=== PATIENT | female | born 1990 | race Caucasian/White ===

== ENCOUNTER 2017-02-09 01:01 | Emergency (ER) | payer OTHER, BC ==
[2017-02-09] MEDS ORDERED: NAPROXEN 250 MG TAB PO ONE (06:00)
[2017-02-09 06:06] VITALS: BP 124/76
== END 2017-02-09 06:23 | disposition home or self-care (01) ==
LOC: M ED 01:01
DX: M25.561 Pain in right knee (principal); X50.9XXA Other and unspecified overexertion or strenuous movements or postures, initial encounter; Y92.59 Other trade areas as the place of occurrence of the external cause; Y93.89 Activity, other specified; Y99.8 Other external cause status; Z88.5 Allergy status to narcotic agent

== ENCOUNTER 2019-08-27 15:18 | Emergency (ER) | payer BC, OTHER ==
[~2019-08-27] VITALS: Ht 167.6 cm; Wt 87.2 kg
[2019-08-27] MEDS ORDERED: KETOROLAC TROMETHAMINE 10 MG TAB PO ONE (15:45)
[2019-08-27] MEDS ORDERED: CYCLOBENZAPRINE 10MG TABLET PO ONE (15:45)
[2019-08-27] MEDS ORDERED: KETO10TAB PO (17:15)
[2019-08-27] MEDS ORDERED: CYCL-707 PO (17:15)
[2019-08-27 17:20] VITALS: BP 121/71
== END 2019-08-27 17:23 | disposition home or self-care (01) ==
LOC: M ED 15:18
DX: S39.012A Strain of muscle, fascia and tendon of lower back, initial encounter (principal); X58.XXXA Exposure to other specified factors, initial encounter; Y92.89 Other specified places as the place of occurrence of the external cause; J45.909 Unspecified asthma, uncomplicated; E28.2 Polycystic ovarian syndrome; Z79.899 Other long term (current) drug therapy; Z88.5 Allergy status to narcotic agent

== ENCOUNTER 2019-08-30 13:03 | Emergency (ER) | payer OTHER ==
[~2019-08-30] VITALS: Ht 167.6 cm; Wt 88.7 kg
[2019-08-30 13:03] VITALS: BP 132/76
[~2019-08-30 13:03] MED LIST: CYCL-707 PO; KETO10TAB PO
== END 2019-08-30 13:46 | disposition home or self-care (01) ==
LOC: M ED 13:03

== ENCOUNTER → 2020-10-01 | Outpatient (CLI) | payer BC ==
[2020-10-01 14:29] LABS: HEMATOCRIT 37.4 % (36.0-47.0); HEMOGLOBIN 12.8 g/dl (12.0-15.5); MEAN CORPUSCULAR HEMOGLOBIN 31.2 pg (27.0-33.0); MEAN CORPUSCULAR HGB CONC 34.2 g/dl (32.0-36.5); MEAN CORPUSCULAR VOLUME 91.2 fl (80.0-96.0); PLATELET COUNT, AUTOMATED 241 10^3/uL (150-450); WHITE BLOOD COUNT 8.9 10^3/uL (4.0-10.0)
[2020-10-01 14:50] LABS: GLUCOSE CHALLENGE TEST 1 HOUR 88 MG/DL (LESS THAN 140)
[2020-10-01 15:45] LABS: HEPATITIS C VIRUS ABY INDEX < 0.0 INDEX (<0.8)
[2020-10-01 15:46] LABS: HIV 1&2 SCREEN CENTAUR NEGATIVE (NEGATIVE)
[2020-10-01 16:16] LABS: HEMOGLOBIN A1c 4.9 %
[2020-10-01 16:49] LABS: CHLAMYDIA DNA AMPLIFICATION NEGATIVE (NEGATIVE); GC DNA AMPLIFICATION NEGATIVE (NEGATIVE)
== END ==
LOC: M LAB 12:15
PROVIDERS: ATTEND Advanced Practice Midwife
DX: Z34.01 Encounter for supervision of normal first pregnancy, first trimester (principal)

== ENCOUNTER → 2020-10-13 | Outpatient (CLI) | payer BC ==
--- NOTE | 2020-10-13 08:18 | REP ---
INDICATION: CONFIRM DATING,UNCERTAIN LMP COMPARISON: None. TECHNIQUE: Transabdominal 1st trimester obstetrical ultrasound with color Doppler evaluation. FINDINGS: Single live early intrauterine is appreciated. [place]-rump length of 7.8 cm corresponds to 13 weeks 6 days gestational age with estimated date of delivery 04/14/2021. heart rate equals 139 beats per minute. No gross abnormalities are identified. Placenta identified at the fundus, grade 0 and without evidence for previa. Cervix measures 3.3 cm in length and appears closed. Maternal ovaries are normal in appearance. IMPRESSION: Single live early intrauterine at 13 weeks 6 days gestational age. Complete anatomical assessment should be performed and 19-20 weeks. <Electronically signed by Jose Antonio Perera > 10/13/20 [id number]
== END ==
LOC: M WHC 06:51
PROVIDERS: ATTEND Advanced Practice Midwife
DX: Z3A.00 Weeks of gestation of pregnancy not specified (principal)

== ENCOUNTER → 2020-10-22 | Outpatient (REF) | payer BC | LOC: M SFHCWAGY 17:25 | PROVIDERS: ATTEND Specialist | DX: Z01.419 Encounter for gynecological examination (general) (routine) without abnormal findings (principal); Z12.4 Encounter for screening for malignant neoplasm of cervix ==

== ENCOUNTER 2020-12-09 12:28 | Inpatient (IN) | payer BC ==
[~2020-12-09] VITALS: Ht 167.6 cm; Wt 98.4 kg
[~2020-12-09 12:28] MED LIST changes: +LIDOCAINE 1% MDV 20ML VIAL SQ PRN; -PRENTAB9 PO
[2020-12-09] MEDS ORDERED: PRENTAB9 PO (12:48)
[2020-12-09] MEDS ORDERED: propofoL 200 MG/20 ML VIAL As Ordered ONE ×4 (13:01→15:00)
[2020-12-09] MEDS ORDERED: LIDOCAINE 2% 100MG/5ML SDV (FOR ANES.) As Ordered ONE (13:01)
[2020-12-09] MEDS ORDERED: ROCURONIUM BROMIDE 50 MG/5 ML VIAL As Ordered ONE (13:01)
[2020-12-09] MEDS ORDERED: fentaNYL 100 MCG/2 ML INJECTION (J3010) As Ordered ONE (13:01)
[2020-12-09] MEDS ORDERED: CHLOROPROCAINE PRES. FREE 2% 20ML VIAL As Ordered ONE (13:14)
[2020-12-09] MEDS ORDERED: LR 1,000 ML IV ONE (13:15)
[2020-12-09 13:31] LABS: HEMATOCRIT 33.6 % (36.0-47.0); HEMOGLOBIN 11.6 g/dl (12.0-15.5); MEAN CORPUSCULAR HEMOGLOBIN 32.1 pg (27.0-33.0); MEAN CORPUSCULAR HGB CONC 34.5 g/dl (32.0-36.5); MEAN CORPUSCULAR VOLUME 93.1 fl (80.0-96.0); PLATELET COUNT, AUTOMATED 231 10^3/uL (150-450); RED BLOOD COUNT 3.61 10^6/uL (4.00-5.40)
[2020-12-09] MEDS ORDERED: LR 1,000 ML IV SCH (15:35)
[2020-12-09 15:50] VITALS: BP 130/68
[2020-12-09] MEDS ORDERED: INDOMETHACIN 25 MG CAP PO SCH (15:50)
[2020-12-09] MEDS ORDERED: ACETAMINOPHEN TAB 650MG DOSE (2X325MG) PO PRN (16:30)
[2020-12-09 17:20] VITALS: BP 153/72
[2020-12-09 18:20] VITALS: BP 130/58
[2020-12-09 20:12] VITALS: BP 125/64
[2020-12-09] MEDS: INDOMETHACIN 25 MG CAP PO SCH (22:02)
[2020-12-09] MEDS: DOCUSATE SODIUM 100MG CAPSULE PO SCH (22:02)
[2020-12-09 22:15] VITALS: BP 119/62
[2020-12-10] VITALS: BP 108/57
--- NOTE | 2020-12-10 02:23 | ROOPDOC ---
[facility] Report Of Operation Report of Operation DATE OF PROCEDURE: 12/09/20 PREPROCEDURE DIAGNOSES: 1. Cervical insufficiency 2. Advanced cervical dilation 3. Intrauterine at 22 weeks and 4 days. POSTPROCEDURE DIAGNOSES: 1. Cervical insufficiency 2. Advanced cervical dilation 3. Intrauterine at 22 weeks and 4 days. PROCEDURE PERFORMED: Rescue Sanders cerclage. SURGEON: Hermila Zee MD CV/CVN CV TSC SYSTEM OPERATOR: None ANESTHESIA: Spinal. ESTIMATED BLOOD LOSS: Approximately 100 mL. SPECIMENS REMOVED: None INDICATION FOR OPERATION: This patient is a 29-year-old 1 at 22 weeks 4 days who presented to the office for cervical assessment due to detection of a shortened cervix on anatomy ultrasound. Per client project coordinator there is no measurable cervix on transvaginal ultrasound. Patient was sent to the office where she was examined and found to be dilated approximately 2 to 3 cm with a bulging membranes. I discussed the diagnosis of cervical insufficiency with the patient. We discussed expectant management with bedrest versus proceeding with rescue cerclage. I reviewed risks of both and after consultation patient decided to proceed with a rescue cerclage DESCRIPTION OF PROCEDURE: After informed consent was obtained and written consent was reviewed the patient was brought to the operating room spinal anesthesia was placed she was then placed in lithotomy position. The patient was then prepped and draped exclude internal preparation. A weighted speculum was then placed in the vagina along with a Penny retractor revealing bulging membranes to the cervix approximately 4 to 5 cm. Montes catheter was then infused with approximately 500 mL of saline with anterior posterior aspect the cervix was visualized and using ring forceps were grasped and placed on traction the membranes are further gently tented to the cervix reducing it further. Using a #0-Prolene, a Sanders cerclage was performed starting at 12 o'clock and extending around to 9 o'clock. This was continued in a pursestring fashion down to 6 o'clock all the way back to 12 o'clock and this was tied at 12 o'clock position. A second suture was placed behind this suture,once again starting at 12 o'clock extending around 9 o'clock in a pursestring fashion down to 6 o'clock around to 3 o'clock back to 12 o'clock position and this was tied down. Cervix was then inspected and noted to be hemostatic and grossly intact. On palpation the cervix felt soft with no strangulation due to cerclage placement. HERMILA ZEE MD. Dec 10, 2020 02:23
[2020-12-10 05:00] VITALS: BP 95/50
[2020-12-10] MEDS: INDOMETHACIN 25 MG CAP PO SCH ×3 (05:13→21:33)
[2020-12-10 07:42] VITALS: BP 130/61
--- NOTE | 2020-12-10 08:03 | IPNPDOC ---
Text Note Date of Service The patient was seen on 12/10/20. NOTE S: Doing well w/o issues. Has had some light bleeding. Denies ctx, f/c/n/v. O: vss, AF Gen: well appearing abd: gravid,nttp TAUS: Active fetus with cardiac activity. Adequate fluid, ceph. A/P: 30-year-old 1 at 23 weeks 5 days with cervical insufficiency s/p rescue cerclagecurrently stable We will consider continue modified bedrest -DC Montes catheter Hermila Zee MD VS,Ronald, I+O VSRonald I+O Laboratory Tests 12/09/20 13:16 Vital Signs Date Time Temp Pulse Resp B/P (MAP) Pulse Ox O2 Delivery O2 Flow Rate FiO2 12/10/20 07:42 98.2 88 20 130/61 (84) 98 Room Air I&O- Last 24 Hours up to 6 AM 12/10/20 05:59 Intake Total 2195 ml Output Total 3000 ml Balance -805 ml HERMILA ZEE MD. Dec 10, 2020 08:03
[2020-12-10] MEDS: PRENATAL VITAMINS CHEWABLE TABLET PO SCH (09:34)
[2020-12-10] MEDS: DOCUSATE SODIUM 100MG CAPSULE PO SCH ×2 (09:34→20:16)
[2020-12-10 11:59] VITALS: BP 103/51
[2020-12-10] MEDS: busPIRone 5 MG TAB PO SCH ×2 (14:19→20:16)
[2020-12-10] MEDS: OMEPRAZOLE 20 MG CAP PO SCH (14:19)
[2020-12-10 20:00] VITALS: BP 105/55
[2020-12-11 04:00] VITALS: BP 95/50
[2020-12-11] MEDS: INDOMETHACIN 25 MG CAP PO SCH ×3 (05:30→22:08)
[2020-12-11 07:25] VITALS: BP 101/54
[2020-12-11] MEDS: PRENATAL VITAMINS CHEWABLE TABLET PO SCH (08:00)
[2020-12-11] MEDS: DOCUSATE SODIUM 100MG CAPSULE PO SCH ×2 (08:00→21:27)
[2020-12-11] MEDS: OMEPRAZOLE 20 MG CAP PO SCH (08:08)
--- NOTE | 2020-12-11 16:03 | IPNPDOC ---
Text Note Date of Service The patient was seen on 12/11/20. NOTE S: Doing well w/o issues. Reports movement. No vaginal bleeding, LOF or cramoing O: vss, AF Gen: well appearing abd: gravid, nttp A/P; 30-year-old 1 with incompetent cervix s/p rescue cerclage -Continue modified bedrest We will remove Montes catheter Complete anatomy ultrasound Hermila Zee MD VS,Ronald, I+O VS, Ronald, I+O Vital Signs Date Time Temp Pulse Resp B/P (MAP) Pulse Ox O2 Delivery O2 Flow Rate FiO2 12/11/20 07:25 98.8 81 16 101/54 (70) 96 Room Air I&O- Last 24 Hours up to 6 AM 12/11/20 05:59 Intake Total 360 ml Output Total 3625 ml Balance -3265 ml HERMILA ZEE MD. Dec 11, 2020 16:03
[2020-12-11 17:11] VITALS: BP 95/50
[2020-12-11 18:41] VITALS: BP 110/58
[2020-12-11 22:00] VITALS: BP 97/52
[2020-12-12 06:00] VITALS: BP 104/52
--- NOTE | 2020-12-12 08:16 | REP ---
INDICATION: complete anatomy u/s COMPARISON: None. TECHNIQUE: Transabdominal obstetrical ultrasound with color Doppler evaluation. FINDINGS: Examination demonstrates a single live intrauterine in breech presentation. motion is identified by technologist. Placenta is noted posterior and grade 0 without evidence for placenta previa or abruption. Amniotic fluid volume is normal. Cervix measures 3.7 cm in length and appears closed.. Selected gestational age: 23 weeks 1 day with THAI 04/09/2021. Gestational age by current measurements 23 weeks 1 day with THAI 04/09/2021. FHR equals 135 beats per minute. BPD: 5.6 cm at 23 weeks 1 day HC: 20.8 cm at 22 weeks 6 days AC: 18.9 cm at 23 weeks 5 days FL: 4.1 cm at 23 weeks 1 day HL: 3.7 cm at 23 weeks 0 days HC/AC: 1.10 Estimated weight 587 grams (52ndpercentile). Anatomical assessment demonstrates normal structures including lungs, four-chamber heart/ventricular outflow tracts, diaphragm, stomach, cord insertion/three-vessel cord, kidneys/bladder, spine, and extremities. Limited evaluation of the cranial and facial structures due to positioning. Kidneys demonstrate mild pelviectasis which remains in normal range. IMPRESSION: Single live intrauterine in breech presentation demonstrating appropriate estimated weight. Anatomical limitations as noted above may warrant re-evaluation and follow-up. <Electronically signed by Jose Antonio Perera > 12/12/20 2440
--- NOTE | 2020-12-12 09:28 | IPNPDOC ---
Text Note Date of Service The patient was seen on 12/12/20. NOTE S: Doing well w/o issues. Reports movement. No vaginal bleeding, LOF or cramoing O: vss, AF +Doptones Gen: well appearing abd: gravid, nttp A/P; 30-year-old 1 at 23w1d with incompetent cervix s/p rescue cerclage -Continue modified bedrest We will remove Montes catheter Complete anatomy ultrasound Hermila Zee MD VS,Ronald, I+O VSRonald, I+O Vital Signs Date Time Temp Pulse Resp B/P (MAP) Pulse Ox O2 Delivery O2 Flow Rate FiO2 12/12/20 06:00 98.8 82 16 104/52 (69) 96 Room Air I&O- Last 24 Hours up to 6 AM 12/12/20 06:00 Intake Total 570 ml Output Total 1375 ml Balance -805 ml HERMILA ZEE MD. Dec 12, 2020 09:28
[2020-12-12 09:48] VITALS: BP 110/58
[2020-12-12 18:00] VITALS: BP 107/57
[2020-12-12] MEDS: DOCUSATE SODIUM 100MG CAPSULE PO SCH (20:55)
[2020-12-13 02:00] VITALS: BP 105/54
[2020-12-13 10:00] VITALS: BP 110/58
[2020-12-13] MEDS: PRENATAL VITAMINS CHEWABLE TABLET PO SCH (10:32)
[2020-12-13] MEDS: OMEPRAZOLE 20 MG CAP PO SCH (10:32)
[2020-12-13] MEDS: DOCUSATE SODIUM 100MG CAPSULE PO SCH ×2 (10:33→20:44)
[2020-12-13 14:00] VITALS: BP 120/59
[2020-12-13 18:00] VITALS: BP 117/57
--- NOTE | 2020-12-13 21:57 | IPNPDOC ---
Text Note Date of Service The patient was seen on 12/13/20. NOTE S: Doing well w/o issues. Reports movement. No vaginal bleeding, LOF or cramping O: vss, AF +Doptones Gen: well appearing abd: gravid, nttp A/P; 30-year-old 1 at 23w2d with incompetent cervix s/p rescue cerclage -Continue modified bedrest Steroids in the am Hermila Zee MD VS,Ronald, I+O VSRonald I+O Vital Signs Date Time Temp Pulse Resp B/P (MAP) Pulse Ox O2 Delivery O2 Flow Rate FiO2 12/13/20 18:00 98.5 83 16 117/57 (77) 98 Room Air I&O- Last 24 Hours up to 6 AM 12/13/20 05:59 Intake Total 800 ml Output Total 3350 ml Balance -2550 ml HERMILA ZEE MD. Dec 13, 2020 21:57
[2020-12-14 02:00] VITALS: BP 112/59
[2020-12-14 06:00] VITALS: BP 117/56
[2020-12-14] MEDS: PRENATAL VITAMINS CHEWABLE TABLET PO SCH (09:31)
[2020-12-14] MEDS: DOCUSATE SODIUM 100MG CAPSULE PO SCH ×2 (09:31→21:00)
[2020-12-14] MEDS: OMEPRAZOLE 20 MG CAP PO SCH (09:31)
--- NOTE | 2020-12-14 12:13 | IPNPDOC ---
Text Note Date of Service The patient was seen on 12/14/20. NOTE S: Doing well w/o issues. Reports movement. No vaginal bleeding, LOF or cramping O: vss, AF +Doptones Gen: well appearing abd: gravid, nttp A/P; 30-year-old 1 at 23w3d with incompetent cervix s/p rescue cerclage -Continue modified bedrest Steroids series today Hermila Zee MD VS,Ronald, I+O VS, Ronald, I+O Vital Signs Date Time Temp Pulse Resp B/P (MAP) Pulse Ox O2 Delivery O2 Flow Rate FiO2 12/14/20 06:00 98.6 80 20 117/56 (76) 98 Room Air I&O- Last 24 Hours up to 6 AM 12/14/20 05:59 Intake Total 1880 ml Output Total 2300 ml Balance -420 ml HERMILA ZEE MD. Dec 14, 2020 12:13
[2020-12-14] MEDS: BETAMETHASONE SOLUSPAN 6MG/ML 5ML VIAL (J0702 PER 3MG) IM SCH (12:55)
[2020-12-14 14:00] VITALS: BP 127/64
[2020-12-14 17:50] VITALS: BP 117/74
[2020-12-14 18:35] LABS: APPEARANCE, URINE CLEAR (CLEAR); BACTERIA, URINE AUTO NEGATIVE (NEGATIVE); BILIRUBIN, URINE AUTO NEGATIVE (NEGATIVE); BLOOD, URINE BLOOD 2+ (NEGATIVE); COLOR, URINE YELLOW (YELLOW); GLUCOSE, URINE (UA) AUTO NEGATIVE (NEGATIVE); KETONE, URINE AUTO NEGATIVE (NEGATIVE); LEUKOCYTE ESTERASE, URINE AUTO NEGATIVE (NEGATIVE); NITRITE, URINE AUTO NEGATIVE (NEGATIVE); PROTEIN, URINE AUTO NEGATIVE (NEGATIVE); RBC, URINE AUTO 0 /HPF (0-3); SPECIFIC GRAVITY URINE AUTO 1.003 (1.002-1.035); SQUAMOUS EPITHELIAL CELL UR AU 0 /HPF (0-6); UROBILINOGEN, URINE AUTO 0.2 mg/dL (0.0-2.0); WBC, URINE AUTO 0 /HPF (0-3)
[2020-12-14 22:00] VITALS: BP 118/56
[2020-12-15] VITALS (12 sets, daily range): BP systolic 108–129; BP diastolic 53–81
[2020-12-15] MEDS: DOCUSATE SODIUM 100MG CAPSULE PO SCH ×2 (08:27→22:17)
[2020-12-15] MEDS: PRENATAL VITAMINS CHEWABLE TABLET PO SCH (08:27)
[2020-12-15] MEDS: OMEPRAZOLE 20 MG CAP PO SCH (08:28)
--- NOTE | 2020-12-15 09:24 | IPNPDOC ---
Text Note Date of Service The patient was seen on 12/15/20. NOTE Subjective: Jelena is a 30-year-old who is a who was noted to have no measurable cervix on her anatomy ultrasound. She decided to have a cerclage placed, which was done on 12/09/[address] Zee. She had complaints yesterday of bright red vaginal bleeding and cramping. Reports some cramping that is intermittent today and continued bright red vaginal bleeding that has decreased but consistently noted whenever she gets up and out of bed. Denies clots and denies soaking through pad. Bleeding is animal feeder than it was yesterday and considered spotting by patient. She reports active movement. Denies leaking of fluid. Denies cramping currently. She received 1 dose of betamethasone yesterday and will receive her second dose today. Objective: VS normal and stable. General: Alert and oriented. She is in prone position with her legs raised. Respiratory: regular rate without use of accessory muscles. Abdomen: gravid Extremities: no edema Assessment: IUP at 23.4 weeks gestation, cervical insufficiency post cerclage placement 6 days ago, spotting Plan: Give second dose of betamethasone today at scheduled time. Continue supportive nursing care. Continue modified bed rest. Patient encouraged to call with any changes. VS,Fishbone, I+O VS, Fishbone, I+O Vital Signs Date Time Temp Pulse Resp B/P (MAP) Pulse Ox O2 Delivery O2 Flow Rate FiO2 12/15/20 05:54 98.8 73 16 108/53 (71) 98 Room Air I&O- Last 24 Hours up to 6 AM 12/15/20 06:00 Intake Total 2320 ml Output Total 4850 ml Balance -2530 ml XIMENA MORILLO CNM Dec 15, 2020 09:24
[2020-12-15] MEDS: BETAMETHASONE SOLUSPAN 6MG/ML 5ML VIAL (J0702 PER 3MG) IM SCH (11:40)
[2020-12-15] MEDS ORDERED: TERBUTALINE SULFATE 1 MG/ML VIAL (J3105) SC STA (20:32)
[2020-12-15] MEDS ORDERED: MAG Sulf (OBGYN) 20GM/500ML 20,000 MG in IV 1 EA IV SCH (20:35)
[2020-12-15] MEDS ORDERED: MAGNESIUM *L&D* 4GM/100ML BAG (40MG/ML) IV ONE (20:35)
[2020-12-15 21:31] LABS: HEMATOCRIT 36.5 % (36.0-47.0); HEMOGLOBIN 12.8 g/dl (12.0-15.5); MEAN CORPUSCULAR HEMOGLOBIN 32.5 pg (27.0-33.0); MEAN CORPUSCULAR HGB CONC 35.1 g/dl (32.0-36.5); MEAN CORPUSCULAR VOLUME 92.6 fl (80.0-96.0); PLATELET COUNT, AUTOMATED 278 10^3/uL (150-450); RED BLOOD COUNT 3.94 10^6/uL (4.00-5.40); WHITE BLOOD COUNT 26.3 10^3/uL (4.0-10.0)
--- NOTE | 2020-12-15 22:02 | IPNPDOC ---
Text Note Date of Service The patient was seen on 12/15/20. NOTE Subjective: Patient reports that during the day today she had no more cramping and her spotting stopped. Tonight she had some cramping and thought she had to have a bowel movement as she was having issues with constipation and was taking stool softeners to help with this problem. She got up to go to the bathroom and reports bright red bleeding and clots in the toilet. Her cramping was coming and going and she was feeling some pressure. She reports active movement. I was called down when she was on the toilet to access her. A bedside ultrasound was done and baby was in cephalic presentation with appropriate FHR. She was moved into labor and delivery via stretcher. Objective: VS, labs, and imaging: see below. FHR: 140, variable decelerations with contractions [place]: contractions 2-8 minutes General: Awake and alert. Does not appear to be in any discomfort but reports cramping. Respiratory: Regular rate Abdomen: soft and non-tender with palpation SSE: cerclage knot noted at 1200 o'clock with advanced dilated cervix and bulging membranes. SVE: 5/100/-2, bloody show Assessment: IUP at 23.2 weeks gestation, active labor, betamethasone complete Plan: -Dr. Moya consulted for plan of care. Recommends transfer to [place] if patient is stable. -Give terbutaline per Dr. Moya now -IV 4 gram Magnesium loading dose now then 2 grams per hour. -Start GBS prophylaxis-PCN G 5 grams now -Dr. Dodd notified of impending delivery for neonatology as she is not stable for transport. -Plan to remove cerclage post delivery as the cerclage has avulsed through cervix. VS,Fishbone, I+O VS, Fishbone, I+O Laboratory Tests 12/15/20 21:08 Vital Signs Date Time Temp Pulse Resp B/P (MAP) Pulse Ox O2 Delivery O2 Flow Rate FiO2 12/15/20 14:00 98.7 96 16 121/70 (87) 99 Room Air I&O- Last 24 Hours up to 6 AM 12/15/20 06:00 Intake Total 2320 ml Output Total 4850 ml Balance -2530 ml XIMENA MORILLO CNM Dec 15, 2020 22:02
[2020-12-15] MEDS ORDERED: PENICILLIN G POTASSIUM IV 5 MU in D5W MINI-BAG PLUS 100 ML IV ONE (22:25)
[2020-12-15] MEDS ORDERED: OXYTOCIN 30 UNITS IN 0.9% NaCl 500ML IV BAG (J2590) As Ordered ONE (22:43)
[2020-12-15] MEDS ORDERED: IBUPROFEN 800 MG TAB PO ONE (23:35)
[2020-12-16] MEDS ORDERED: LR 1,000 ML IV SCH (00:45)
--- NOTE | 2020-12-16 00:52 | DNPDOC ---
[facility] Delivery Note Delivery Note DATE OF DELIVERY: 12/15/20 at 2241 PREDELIVERY DIAGNOSIS: 23-2/7 weeks' gestation and active labor. POST DELIVERY DIAGNOSIS: Delivered. PROCEDURE: Spontaneous severely vaginal delivery. MANAGER SOLUTION: Ximena Seth CNM, HENNA ANESTHESIA: none. ESTIMATED BLOOD LOSS: 450 mL. FINDINGS: 1 pound 5 ounces; 610 grams; male , Score 2/4/6, severe delivery, likely chorioamnionitis given elevated WBC (no fever). DELIVERY SUMMARY: Jelena is a 30-year-old female who is now a who had a rescue cerclage for incompetent cervix placed 6 days ago and had some spotting and cramping a few days ago. She was given Betamethasone and she is now beta complete as of 12/15/20 at 1100 this morning. She reported vaginal bleeding while on the toilet with some cramping and was brought down to L&D and found to be 5 cm with bulging bag of fluid and the rescue cerclage that was avulsed through the cervix. She was unstable for transport due to advanced dilation. Magnesium was started along with prophylactic GBS antibiotics. Neonatology was notified and made [place] neonatology transport team aware. Dr. Dodd was in to discuss the potential outcomes this gestation exposes . After myself and Dr. Dodd discussed options with parents they decided on full resuscitation. Dr. Dodd was notified along with the NICU staff. The patient spontaneously ruptured at some point after speculum exam/SVE. She reported increased back pain and pressure. She pushed for 2 contractions before delivering a live male. The cord was clamped x2 and cut. The baby was handed off to the NICU team who were present in the room for delivery. The placenta delivered spontaneously at 2256. Uterine hemostasis was achieved via rapid infusion of IV Pitocin and fundal massage. The placenta was sent to pathology. Mom is in stable condition. All counts of instruments and sponges were correct. XIMENA SETH CNM Dec 16, 2020 00:52
[2020-12-16] MEDS ORDERED: OXYTOCIN DRIP 30 UNITS in IV 1 EA IV SCH (01:00)
[2020-12-16] MEDS ORDERED: RHOGAM 300 MCG (1500 IU) INJ (J2790) IM SCH (01:00)
[2020-12-16] MEDS ORDERED: DOCUSATE SODIUM 100MG CAPSULE PO PRN (01:00)
[2020-12-16] MEDS ORDERED: DIBUCAINE 1% OINTMENT 30GM TOP PRN (01:00)
[2020-12-16] MEDS ORDERED: ACETAMINOPHEN TAB 650MG DOSE (2X325MG) PO PRN (01:00)
[2020-12-16] MEDS ORDERED: METHYLERGONOVINE MALEATE 0.2 MG TAB PO PRN (01:00)
[2020-12-16] MEDS ORDERED: ANUSOL HC CREAM 30GM TOP PRN (01:00)
[2020-12-16] MEDS ORDERED: MEASLES,MUMPS,RUBELLA VACCINE INJ (MMR-II) (90707) SC SCH (01:00)
[2020-12-16] MEDS ORDERED: IBUPROFEN 800 MG TAB PO PRN (01:00)
[2020-12-16] MEDS ORDERED: ACETAMINOPHEN 500 MG TAB PO PRN (01:00)
[2020-12-16] MEDS ORDERED: IBUPROFEN 600MG TAB PO PRN (01:00)
[2020-12-16 02:00] VITALS: BP 119/67
[2020-12-16 06:00] VITALS: BP 111/71
[2020-12-16] MEDS ORDERED: BOOSTRIX/ADACEL VACCINE (DIPHTH/PERTUSS/ACELL/TETANUS) 0.5ML SYR IM ONE (09:00)
[2020-12-16] MEDS ORDERED: PRENATAL VITAMINS CHEWABLE TABLET PO SCH (09:00)
[2020-12-16] MEDS ORDERED: ACET-683 PO (09:37)
[2020-12-16] MEDS ORDERED: IBUP80TA PO (09:37)
[2020-12-16 10:01] LABS: HEMATOCRIT 33.8 % (36.0-47.0); HEMOGLOBIN 11.7 g/dl (12.0-15.5); MEAN CORPUSCULAR HEMOGLOBIN 32.3 pg (27.0-33.0); MEAN CORPUSCULAR HGB CONC 34.6 g/dl (32.0-36.5); MEAN CORPUSCULAR VOLUME 93.4 fl (80.0-96.0); PLATELET COUNT, AUTOMATED 291 10^3/uL (150-450); RED BLOOD COUNT 3.62 10^6/uL (4.00-5.40); WHITE BLOOD COUNT 23.7 10^3/uL (4.0-10.0)
--- NOTE | 2020-12-16 10:13 | DS.PDOC ---
Discharge Summary General Date of Admission Dec 09, 2020 at 12:30 Date of Discharge 12/16/20 Attending Physician: XIMENA MORILLO CNM Discharge Summary PROCEDURES PERFORMED DURING STAY: cerclage ADMITTING DIAGNOSES: 1. . DISCHARGE DIAGNOSES: 1. . COMPLICATIONS/CHIEF COMPLAINT: [place] Cervical Cerclage. HISTORY OF PRESENT ILLNESS: . HOSPITAL COURSE: . DISCHARGE MEDICATIONS: Please see below. ALLERGIES: Please see below. PHYSICAL EXAMINATION ON DISCHARGE: VITAL SIGNS: Please see below. GENERAL: HEENT: NECK: CARDIOVASCULAR EXAMINATION: RESPIRATORY EXAMINATION: ABDOMINAL EXAMINATION: EXTREMITIES: SKIN: NEUROLOGICAL EXAMINATION: PSYCHIATRIC EXAMINATION: LABORATORY DATA: Please see below. IMAGING: PROGNOSIS: ACTIVITY: [As tolerated]. DIET: DISCHARGE PLAN: DISPOSITION: . DISCHARGE INSTRUCTIONS: 1. . ITEMS TO FOLLOWUP ON ON OUTPATIENT: 1. . DISCHARGE CONDITION: [Stable]. TIME SPENT ON DISCHARGE: minutes. Vital Signs/I&Os Vital Signs Date Time Temp Pulse Resp B/P (MAP) Pulse Ox O2 Delivery O2 Flow Rate FiO2 12/16/20 06:00 98.9 91 16 111/71 (84) 12/15/20 14:00 99 Room Air I&O- Last 24 Hours up to 6 AM 12/16/20 06:00 Intake Total 2370 ml Output Total 4425 ml Balance -2055 ml Laboratory Data Labs 24H Laboratory Tests 2 12/15/20 21:08: Nucleated Red Blood Cells % (auto) 0.0, Syphilis Serology NONREACTIVE 12/16/20 09:27: Nucleated Red Blood Cells % (auto) 0.0 CBC/BMP Laboratory Tests 12/15/20 21:08 12/16/20 09:27 Microbiology Microbiology 12/14/20 Urine Culture - Final, Complete Discharge Medications Scheduled No.137/Iron/Folic Acd ( Vitamin Tablet) 1 Each Tablet, 1 TAB PO DAILY, (Reported) Scheduled PRN Acetaminophen (Acetaminophen) 500 Mg Tablet, 1,000 MG PO Q8HP PRN for PAIN LEVEL 1-5 Ibuprofen (Ibuprofen) 800 Mg Tablet, 800 MG PO Q8HP PRN for PAIN LEVEL 6-10 Allergies Coded Allergies: hydrocodone (Verified Allergy, Severe, HIVES, 08/27/19) XIMENA MORILLO CNM Dec 16, 2020 10:13
== END 2020-12-16 10:32 | disposition home or self-care (01) | DRG 542 ==
LOC: M LDO 12:28 → M SDC 12:28 → M LDI 12:30 → M PED 15:45 → M OBS 12-11 18:34 → M LDI 12-15 20:27 → M SDC 12-15 21:24 → M OBS 12-16 02:00
PROVIDERS: ADMIT Obstetrics & Gynecology; ATTEND Obstetrics & Gynecology
PROC: 0UVC7ZZ Restriction of Cervix, Via Natural or Artificial Opening (ICD-10-PCS; 2020-12-09)
PROC: 10E0XZZ Delivery of Products of Conception, External Approach (ICD-10-PCS; principal; 2020-12-15)
DX: O34.32 Maternal care for cervical incompetence, second trimester (principal); O41.1220 Chorioamnionitis, second trimester, not applicable or unspecified; Z3A.23 23 weeks gestation of pregnancy; Z37.0 Single live birth

== ENCOUNTER → 2020-12-09 | Outpatient (CLI) | payer BC ==
[~2020-12-09] MED LIST changes: +PRENTAB9 PO
--- NOTE | 2020-12-09 09:26 | REP ---
INDICATION: ANATOMY EVAL CERVIX COMPARISON: None. TECHNIQUE: Transabdominal and transvaginal obstetrical ultrasound with color Doppler evaluation. FINDINGS: Examination demonstrates live intrauterine in cephalic presentation. Placenta identified posteriorly and grade 1 without previa. Examination was terminated when it was determined that there was an apparent patent cervix with significant funneling and no obvious significant closed portion. IMPRESSION: Examination was terminated due to widely patent cervix without significant closed portion identified. Patient was taken directly to the physician's office. <Electronically signed by Jose Antonio Perera > 12/09/20 [id number]
== END ==
LOC: M WHC 08:34
PROVIDERS: ATTEND Specialist
DX: Z34.82 Encounter for supervision of other normal pregnancy, second trimester (principal)

== ENCOUNTER 2020-12-24 19:24 | Emergency (ER) | payer BC ==
[~2020-12-24] VITALS: Ht 167.6 cm; Wt 92.3 kg
[~2020-12-24 19:24] MED LIST changes: +ACET-683 PO; +IBUP80TA PO; -LIDOCAINE 1% MDV 20ML VIAL SQ PRN; +PRENTAB9 PO
[2020-12-25 01:04] VITALS: BP 132/81
[2020-12-25] MEDS ORDERED: ACETAMINOPHEN 500 MG TAB PO ONE (01:15)
[2020-12-25] MEDS ORDERED: NS 1,000 ML IV ONE (01:35)
[2020-12-25] MEDS ORDERED: cefTRIAXone SOD 1 GM in D5W MINI-BAG PLUS 50 ML IV ONE (01:55)
[2020-12-25 01:58] LABS: RSV AMPLIFICATION NEGATIVE (NEGATIVE)
[2020-12-25 02:02] LABS: BASO % 0.2 % (0.0-1.0); EOS % 0.2 % (0.0-3.0); HEMATOCRIT 43.4 % (36.0-47.0); HEMOGLOBIN 14.5 g/dl (12.0-15.5); LYMPH # 1.2 10^3/uL (1.5-5.0); LYMPH % 12.5 % (24.0-44.0); MEAN CORPUSCULAR HEMOGLOBIN 31.7 pg (27.0-33.0); MEAN CORPUSCULAR HGB CONC 33.4 g/dl (32.0-36.5); MONO # 0.5 10^3/uL (0.0-0.8); NEUTROPHILS # 8.1 10^3/uL (1.5-8.5); NEUTROPHILS % 81.7 % (36.0-66.0); PLATELET COUNT, AUTOMATED 248 10^3/uL (150-450); RED BLOOD COUNT 4.57 10^6/uL (4.00-5.40); WHITE BLOOD COUNT 9.9 10^3/uL (4.0-10.0)
[2020-12-25 02:21] LABS: ERYTHROCYTE SEDIMENTATION RATE 30 mm/hr (0-20)
[2020-12-25 02:33] LABS: C REACTIVE PROTEIN QUANTITATIV 2.7 MG/DL (0.00-0.30)
--- NOTE | 2020-12-25 04:44 | REPVR ---
PROCEDURE INFORMATION: Exam: XR Chest Exam date and time: 12/25/2020 2:58 AM Age: 30 years old Clinical indication: Cough and fever; Additional info: Fever, cough covid + TECHNIQUE: Imaging protocol: XR of the chest. Views: 1 view. COMPARISON: No relevant prior studies available. FINDINGS: Lungs: Unremarkable. No consolidation. Pleural spaces: Unremarkable. No pleural effusion. No pneumothorax. Heart/Mediastinum: Unremarkable. No cardiomegaly. Bones/joints: Unremarkable. IMPRESSION: No acute findings. Electronically signed by: Maribell Benitez On 12/25/2020 04:44:12 AM
[2020-12-25] MEDS ORDERED: DICL500C PO (04:50)
== END 2020-12-25 08:22 | disposition home or self-care (01) ==
LOC: M ED 19:24
DX: O91.22 Nonpurulent mastitis associated with the puerperium (principal); O98.53 Other viral diseases complicating the puerperium; U07.1 COVID-19; Z88.5 Allergy status to narcotic agent
CPT/HCPCS: 71045; 80047; 83605; 84702; 85025; 85652; 86140; 87040; 87631; 96365; 96366; 99283; J0696

== ENCOUNTER 2020-12-25 08:40 | Outpatient (CLI) | payer BC ==
[~2020-12-25] VITALS: Ht 169.2 cm; Wt 93.3 kg
--- NOTE | 2020-12-25 06:00 | CR.PDOC ---
General Date of Consultation: Dec 25, 2020 Referring Provider: JUAREZ IVY MD Attending Physician: MARIMAR JARRETT MD Consultation REASON FOR CONSULTATION/CHIEF COMPLAINT: URI symptoms HISTORY OF PRESENT ILLNESS: 30 yo female who presents with a 24 hour history of URI symptoms including fever, rigors, non-productive cough, nasal, and chest congestion that caused her to seek attention in the ED. While in the ED she was found to be COVID positive. She denies having received the vaccine. Of note she was recently seen at [facility] ED in premature labor and delivered at 23 weeks with a subsequent 7 day hospital stay. During that time she tested negative for COVID. REVIEW OF SYSTEMS: Constitutional: Denies fevers, chills, night sweats, or recent unexpected weight change HEENT: Denies headaches, head trauma, no visual changes or eye pain, denies nosebleeds or difficulty swallowing. Cardiovascular: Denies chest pain, palpitations, or orthopnea. Respiratory: Denies cough, wheezing, or shortness of breath GI: Denies nausea, vomiting, abdominal pain, diarrhea, or constipation : Denies pain with urination or frequency Musculoskeletal: Denies joint pain or swelling Neuro/psych: Denies muscle weakness or sensory loss Skin: Denies skin rashes PAST MEDICAL HISTORY: None PAST SURGICAL HISTORY: Cholecystectomy Cerclage placement ALLERGIES: Please see below. HOME MEDICATIONS: Please see below. PHYSICAL EXAMINATION: VITAL SIGNS: See below GENERAL APPEARANCE: Well-appearing female laying comfortably in bed in no acute distress HEENT: NC, AT, EOMI, no scleral icterus, moist mucous membranes, no pharyngeal erythema. CARDIOVASCULAR: RRR, normal S1-S2. No murmurs, gallops, rubs. LUNGS: CTAB with full breath sounds, no wheezes, crackles, or rhonchi. ABDOMEN: Soft, nontender, nondistended, bowel sounds present. No hepatosplenomegaly. No masses or ecchymosis. No CVA tenderness. EXTREMITIES: No swelling or edema NEUROLOGICAL: No focal or sensory deficits. CN II-XII grossly intact. PSYCHIATRIC: Normal mood and affect LABORATORY DATA: Please see below. ASSESSMENT/PLAN: #. COVID-19 infection Unvaccinated. Patient meets criteria for Covid monoclonal antibody infusion by virtue of being COVID-19 positive and having high risk features including being and having a BMI> 25 Consent for infusion reviewed and signed by patient. Pretreatments ordered. Patient verbalized understanding and agreement with plan moving forward. Allergies Coded Allergies: hydrocodone (Verified Allergy, Severe, HIVES, 08/27/19) Home Medications Scheduled Dicloxacillin Sodium (Dicloxacillin Sodium) 500 Mg Capsule, 1 CAP PO QID for 10 Days, #40 No.137/Iron/Folic Acd ( Vitamin Tablet) 1 Each Tablet, 1 TAB PO DAILY for 30 Days, #30 (Reported) Scheduled PRN Acetaminophen (Acetaminophen) 500 Mg Tablet, 1,000 MG PO Q8HP PRN for PAIN LEVEL 1-5, #60 Ibuprofen (Ibuprofen) 800 Mg Tablet, 800 MG PO Q8HP PRN for PAIN LEVEL 6-10, #30 GME ATTESTATION GME ATTESTATION My faculty preceptor for this patient encounter was physically present during the encounter and was fully available. All aspects of the patient interview, examination, medical decision making process, and medical care plan development were reviewed and approved by the faculty preceptor. The faculty preceptor is aware and concurs with the plan as stated in the body of this note and will attest to such by his/her cosignature. ATTENDING NOTE TIME OF SERVIC 655AM I independently examined the patient, discussed the case with Dr Galan and agree with the findings as documented. JODI GALAN DO Dec 25, 2020 06:00 MARIMAR JARRETT MD Dec 25, 2020 07:12
[2020-12-25 08:20] VITALS: BP 111/72
[~2020-12-25 08:40] MED LIST changes: +ALBUTEROL 90 MCG/ACT 8GM HFA INHALER INH PRN; +ALBUTEROL SULFATE 2.5 MG/0.5 ML INH NEB SOLN INH PRN; +DICL500C PO; +EPINEPHrine INJ 1 MG/ML 1ML AMP IM PRN; +NS 1,000 ML IV SCH; +diphenhydrAMINE 50MG/ML VIAL (J1200) IV ONE; +diphenhydrAMINE 50MG/ML VIAL (J1200) IV PRN; +methylPREDNISolone 125MG 2ML VIAL IV ONE; +methylPREDNISolone 125MG 2ML VIAL IV PRN
[2020-12-25 09:20] VITALS: BP 92/52
[2020-12-25 10:00] VITALS: BP 103/56
[2020-12-25] MEDS ORDERED: CASIRIVIMAB/IMDEVIMAB 1,200 MG in NS 250 ML IV ONE (10:00)
[2020-12-25 10:28] VITALS: BP 111/68
[2020-12-25] MEDS ORDERED: ACETAMINOPHEN 500 MG TAB PO ONE (10:30)
[2020-12-25 11:36] VITALS: BP 106/68
[2020-12-26] MEDS ORDERED: UNRESOLVED CLARIFICATION ENTRY XX SCH (00:01)
== END 2020-12-25 11:36 ==
LOC: M OPCLI4 08:40
PROVIDERS: ATTEND Internal Medicine
DX: U07.1 COVID-19 (principal); Z88.6 Allergy status to analgesic agent
CPT/HCPCS: 96375; J1200; J2930; M0243

== ENCOUNTER → 2022-08-12 | Outpatient (CLI) | payer OTHER ==
[~2022-08-12] MED LIST changes: -ALBUTEROL 90 MCG/ACT 8GM HFA INHALER INH PRN; -ALBUTEROL SULFATE 2.5 MG/0.5 ML INH NEB SOLN INH PRN; -EPINEPHrine INJ 1 MG/ML 1ML AMP IM PRN; -NS 1,000 ML IV SCH; -diphenhydrAMINE 50MG/ML VIAL (J1200) IV ONE; -diphenhydrAMINE 50MG/ML VIAL (J1200) IV PRN; -methylPREDNISolone 125MG 2ML VIAL IV ONE; -methylPREDNISolone 125MG 2ML VIAL IV PRN
[2022-08-17 10:12] LABS: 17 HYDROXY PROGESTERONE 52 ng/dL (.); TESTOSTERONE FREE (DIRECT) 1.9 pg/mL (0.0-4.2)
== END ==
LOC: M PLALAB 12:55
PROVIDERS: ATTEND Nurse Practitioner Family
DX: Z12.4 Encounter for screening for malignant neoplasm of cervix (principal); E28.2 Polycystic ovarian syndrome

== ENCOUNTER 2023-01-28 11:58 | Day surgery (SDC) | payer OTHER ==
[~2023-01-28] VITALS: Ht 167.6 cm; Wt 92.0 kg
[~2023-01-28 11:58] MED LIST changes: +IMIT100T PO
[2023-01-28 12:27] LABS: HEMATOCRIT 42.2 % (36.0-47.0); HEMOGLOBIN 14.5 g/dl (12.0-15.5); MEAN CORPUSCULAR HEMOGLOBIN 30.6 pg (27.0-33.0); MEAN CORPUSCULAR HGB CONC 34.4 g/dl (32.0-36.5); PLATELET COUNT, AUTOMATED 247 10^3/uL (150-450); RED BLOOD COUNT 4.74 10^6/uL (4.00-5.40); WHITE BLOOD COUNT 8.5 10^3/uL (4.0-10.0)
[2023-01-28] MEDS ORDERED: LR 1,000 ML IV SCH ×3 (12:35→16:45)
[2023-01-28] MEDS ORDERED: OXYC1TAB23 PO (14:05)
[2023-01-28] MEDS ORDERED: IBUP-1022 PO (14:06)
[2023-01-28] MEDS ORDERED: KETOROLAC 60MG 2ML VIAL As Ordered ONE (14:08)
[2023-01-28] MEDS ORDERED: SUGAMMADEX SODIUM 500 MG/5 ML VIAL (BRIDION) As Ordered ONE (14:08)
[2023-01-28] MEDS ORDERED: ONDANSETRON 4MG 2ML VIAL As Ordered ONE (14:08)
[2023-01-28] MEDS ORDERED: LIDOCAINE 2% 100MG/5ML SDV (FOR ANES.) As Ordered ONE (14:08)
[2023-01-28] MEDS ORDERED: ROCURONIUM BROMIDE 50MG/5ML VIAL As Ordered ONE (14:08)
[2023-01-28] MEDS ORDERED: propofoL 200 MG/20 ML VIAL As Ordered ONE (14:08)
[2023-01-28] MEDS ORDERED: MIDAZOLAM INJ 2MG/2ML VIAL As Ordered ONE (14:13)
[2023-01-28] MEDS ORDERED: fentaNYL 100 MCG/2 ML INJECTION As Ordered ONE (14:14)
[2023-01-28] MEDS ORDERED: ACETAMINOPHEN 1000MG 100ML IV BAG As Ordered ONE (15:59)
[2023-01-28] MEDS ORDERED: ONDANSETRON 4MG 2ML VIAL IV PRN (16:35)
[2023-01-28] MEDS ORDERED: fentaNYL 100 MCG/2 ML INJECTION IV PRN (16:35)
[2023-01-28] MEDS ORDERED: PERCOCET 5MG/325MG TAB PO PRN (16:45)
[2023-01-28 17:15] VITALS: BP 103/61; TEMP 97.8; O2SAT 95
== END 2023-01-28 17:35 | disposition home or self-care (01) ==
LOC: M SDC 11:58
PROVIDERS: ATTEND Specialist
DX: Z30.2 Encounter for sterilization (principal); G43.909 Migraine, unspecified, not intractable, without status migrainosus; Z79.899 Other long term (current) drug therapy; Z91.048 Other nonmedicinal substance allergy status; Z88.5 Allergy status to narcotic agent
CPT/HCPCS: 36415; 58661; 81025; 85027; 88302; J0131; J0665; J1100; J1885; J2250; J2405; J3010